=== PATIENT | male | born 1960 | race Caucasian/White ===

== ENCOUNTER 2021-01-30 11:25 | Outpatient (REF) | payer OTHER, SELFPAY ==
--- NOTE | ~2021-01-30 | MR_ITS ---
EXAMINATION: MR BRAIN WITHOUT AND WITH CONTRAST CLINICAL INFORMATION: CSF leak with low-pressure headaches. COMPARISON: None. TECHNIQUE: Multiplanar, multisequence imaging of the brain was performed before and after the intravenous administration of 10 mL of Gadavist. FINDINGS: No diffusion abnormalities are identified to suggest an acute infarct. The ventricles are normal in size. No mass effect or midline shift is seen. No brain parenchymal signal abnormality is noted. No extra-axial fluid collections are seen. The brainstem and cerebellum are normal. There is no abnormal parenchymal enhancement. There is mild pachymeningeal enhancement along the cerebral convexities and to a lesser degree in the posterior fossa. The gradient refocused acquisition is normal. The craniovertebral junction, marrow signal, and midline structures are normal. The major intracranial flow voids at the level of the viejas of [place] are preserved. The dural venous sinus flow voids are maintained. Very mild ethmoid sinus mucosal thickening and small retention cyst in the left maxillary antrum. There is a mild amount of fluid in the mastoid air cells bilaterally. Incidental small 1.2 cm left frontal scalp lipoma is visible. 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
== END 2021-01-30 11:26 | disposition home or self-care (01) ==
LOC: HO.MRI 11:25
PROVIDERS: PCP Physician Assistant; Visit Provider Psychiatry & Neurology Neurology
DX: G96.00 Cerebrospinal fluid leak, unspecified (principal); G44.89 Other headache syndrome
CPT/HCPCS: 70553; A9585